=== PATIENT | male | born 1950 | race Caucasian/White ===

== ENCOUNTER 2021-04-23 11:07 | Observation (INO) ==
[2021-04-23 11:41] LABS: Basophils % 0.7 % (0.0-0.8); Eosinophils # 0.1 10*3/uL (0.0-0.87); Immature Granulocytes % 0.3 %; Immature Granulocytes Absolute 0.02 #; Lymphocytes # 1.2 10*3/uL (1.4-4.0); Mean Corpuscular HGB Conc 33.3 GM/DL (32-36); Mean Corpuscular Volume 98.3 FL (87-102); Mean Platelet Volume 9.7 FL (9.6-12.0); Monocytes % 7.7 % (1.7-12.7); Neutrophils % 68.3 % (38.7-73.9); Platelet Count 196 T/CUMM (130-400); Red Blood Count 4.58 MC/CUMM (3.8-5.5); Red Cell Distribution Width 13.4 % (9.3-17.3); White Blood Count 5.9 T/CUMM (4-12)
[2021-04-23 11:51] LABS: PT Patient Result 10.8 SECS (10.5-12.0); Partial Thromboplastin Time 26.6 SECS (23.9-33.8)
[2021-04-23 11:59] LABS: Albumin 3.8 G/DL (3.4-5.0); Bilirubin,Total 0.7 MG/DL (0.20-1.00); Calcium 9.2 MG/DL (8.5-10.1); Osmolality,Calculated 283.4 MOS/KG (273-304); Potassium 4.4 MMOL/L (3.5-5.1); Total Protein 7.2 G/DL (6.4-8.2)
[2021-04-23] MEDS ORDERED: NITROGLYCERIN SL 0.4 MG TABLET SL PRN (13:51)
[2021-04-23] MEDS ORDERED: ZALEPLON 5 MG CAPSULE PO PRN (14:15)
[2021-04-23] MEDS ORDERED: GLUCAGON 1 MG VIAL IM PRN (14:15)
[2021-04-23] MEDS ORDERED: MORPHINE 2 MG/1 ML SYRINGE IV PRN (14:15)
[2021-04-23] MEDS ORDERED: DEXTROSE 50% 25 GM/50 ML VIAL IV PRN (14:15)
[2021-04-23] MEDS ORDERED: MAGNESIUM SULF RIDER 2 GM/50 ML PREMIX IV PRN (14:15)
[2021-04-23] MEDS ORDERED: MAGNESIUM SULF RIDER 4 GM/100 ML PREMIX IV PRN (14:15)
[2021-04-23] MEDS ORDERED: ONDANSETRON 4 MG/2 ML VIAL IV PRN (14:15)
[2021-04-23] MEDS: INSULIN LISPRO 100 UNIT/ML SUBCUT SCH ×2 (18:43→20:56)
[2021-04-23] MEDS: carvediloL 3.125 MG TABLET PO SCH (18:54)
[2021-04-23] MEDS: ENOXAPARIN 40 MG/0.4 ML SYRINGE SUBCUT SCH (18:54)
[2021-04-23] MEDS: SODIUM CHLORIDE 0.45% 1,000 ML IV SCH (18:55)
[2021-04-23] MEDS: TICAGRELOR 90 MG TABLET PO SCH (20:56)
[2021-04-23] MEDS: SIMVASTATIN 20 MG TABLET PO SCH (20:56)
[2021-04-23] MEDS ORDERED: PIOGLITAZONE PO SCH (21:00)
[2021-04-23] MEDS ORDERED: METFORMIN PO SCH (21:00)
[2021-04-24 05:57] LABS: Risk Ratio 2.44
[2021-04-24] MEDS: SODIUM CHLORIDE 0.45% 1,000 ML IV SCH (06:08)
[2021-04-24] MEDS ORDERED: PNEUMOCOCCAL VACCINE (13 VALENT) 0.5 ML SYRINGE IM ONE (08:00)
[2021-04-24] MEDS ORDERED: metFORMIN 500 MG TABLET PO SCH (08:00)
[2021-04-24] MEDS: INSULIN LISPRO 100 UNIT/ML SUBCUT SCH ×4 (08:58→20:37)
[2021-04-24] MEDS: ENALAPRIL 20 MG TABLET PO SCH (09:01)
[2021-04-24] MEDS: carvediloL 3.125 MG TABLET PO SCH ×2 (09:02→16:41)
[2021-04-24] MEDS: ASPIRIN EC 81 MG TABLET PO SCH (09:02)
[2021-04-24] MEDS: PIOGLITAZONE 15 MG TABLET PO SCH ×2 (09:03→16:41)
[2021-04-24] MEDS: TICAGRELOR 90 MG TABLET PO SCH ×2 (09:04→20:36)
[2021-04-24] MEDS: ISOSORBIDE MONONITRATE 30 MG TABLET PO SCH (10:55)
[2021-04-24] MEDS: PANTOPRAZOLE 40 MG TABLET PO SCH (10:55)
[2021-04-24] MEDS ORDERED: HEPARIN/NACL 0.9% 2 UNITS/ML 2,000 UNIT/1,000 ML BAG IV ONE (11:49)
[2021-04-24] MEDS ORDERED: LIDOCAINE 1% 20 ML VIAL ONE (11:49)
[2021-04-24] MEDS ORDERED: VERAPAMIL 5 MG/2 ML VIAL ONE (11:50)
[2021-04-24] MEDS ORDERED: NITROGLYCERIN DRIP 50 MG/250 ML BOTTLE IV ONE (11:50)
[2021-04-24] MEDS ORDERED: diphenhydrAMINE CAP 25 MG CAPSULE PO ONE (13:00)
[2021-04-24] MEDS ORDERED: DIAZEPAM 5 MG TABLET PO ONE (13:00)
[2021-04-24] MEDS ORDERED: fentaNYL 100 MCG/2 ML VIAL ONE (13:25)
[2021-04-24] MEDS ORDERED: MIDAZOLAM 2 MG/2 ML VIAL ONE (13:25)
[2021-04-24] MEDS ORDERED: ENOXAPARIN 60 MG/0.6 ML SYRINGE ONE (13:52)
[2021-04-24] MEDS ORDERED: TIROFIBAN 5,000 MCG/100 ML PREMIX IV ONE (13:52)
[2021-04-24] MEDS ORDERED: ENOXAPARIN 30 MG/0.3 ML SYRINGE ONE (13:52)
[2021-04-24] MEDS: ENOXAPARIN 40 MG/0.4 ML SYRINGE SUBCUT SCH (13:59)
[2021-04-24] MEDS ORDERED: TIROFIBAN 5,000 MCG/100 ML PREMIX IV SCH (14:01)
[2021-04-24] MEDS ORDERED: TICAGRELOR 90 MG TABLET ONE (14:11)
[2021-04-24] MEDS: SIMVASTATIN 20 MG TABLET PO SCH (20:36)
[2021-04-25 04:36] LABS: Basophils % 0.6 % (0.0-0.8); Eosinophils # 0.1 10*3/uL (0.0-0.87); Eosinophils % 1.8 % (0.00-10.9); Hematocrit 42.3 VOL% (42.0-52.0); Hemoglobin 13.8 GM/DL (14.0-18.0); Immature Granulocytes % 0.3 %; Immature Granulocytes Absolute 0.02 #; Lymphocytes % 15.3 % (21.2-54.2); Mean Corpuscular HGB Conc 32.6 GM/DL (32-36); Mean Corpuscular Volume 98.6 FL (87-102); Mean Platelet Volume 9.8 FL (9.6-12.0); Monocytes % 6.3 % (1.7-12.7); Neutrophils % 75.7 % (38.7-73.9); Platelet Count 182 T/CUMM (130-400); Red Blood Count 4.29 MC/CUMM (3.8-5.5); Red Cell Distribution Width 13.2 % (9.3-17.3); White Blood Count 6.7 T/CUMM (4-12)
[2021-04-25 05:10] LABS: Calcium 8.7 MG/DL (8.5-10.1); Osmolality,Calculated 278.5 MOS/KG (273-304); Potassium 3.5 MMOL/L (3.5-5.1)
[2021-04-25] MEDS: INSULIN LISPRO 100 UNIT/ML SUBCUT SCH (08:01)
[2021-04-25] MEDS: carvediloL 3.125 MG TABLET PO SCH (10:04)
[2021-04-25] MEDS: PIOGLITAZONE 15 MG TABLET PO SCH (10:04)
[2021-04-25] MEDS: PANTOPRAZOLE 40 MG TABLET PO SCH (10:04)
[2021-04-25] MEDS: ISOSORBIDE MONONITRATE 30 MG TABLET PO SCH (10:05)
[2021-04-25] MEDS: ENALAPRIL 20 MG TABLET PO SCH (10:05)
[2021-04-25] MEDS: ASPIRIN EC 81 MG TABLET PO SCH (10:05)
[2021-04-25] MEDS: TICAGRELOR 90 MG TABLET PO SCH (10:05)
[2021-04-25 10:07] VITALS: BP 128/68
== END 2021-04-25 10:46 | disposition home or self-care (01) ==
LOC: N.ED 11:07 → N.EDINP 11:07 → N.TELEN 18:06
PROVIDERS: ADMIT Internal Medicine Cardiovascular Disease; ATTEND Internal Medicine Cardiovascular Disease
PROC: CLCCHCL (ICD-10-PCS; 2021-04-24 14:15)

== ENCOUNTER 2021-07-24 11:34 | Observation (INO) ==
[2021-07-24 12:09] LABS: Basophils % 0.5 % (0.0-0.8); Eosinophils # 0.1 10*3/uL (0.0-0.87); Eosinophils % 1.9 % (0.00-10.9); Hematocrit 41.9 VOL% (42.0-52.0); Hemoglobin 13.7 GM/DL (14.0-18.0); Immature Granulocytes % 0.5 %; Immature Granulocytes Absolute 0.03 #; Lymphocytes # 0.9 10*3/uL (1.4-4.0); Lymphocytes % 14.7 % (21.2-54.2); Mean Corpuscular HGB Conc 32.7 GM/DL (32-36); Mean Corpuscular Volume 98.6 FL (87-102); Mean Platelet Volume 9.3 FL (9.6-12.0); Monocytes % 6.3 % (1.7-12.7); Neutrophils % 76.1 % (38.7-73.9); Platelet Count 227 T/CUMM (130-400); Red Blood Count 4.25 MC/CUMM (3.8-5.5); Red Cell Distribution Width 13.2 % (9.3-17.3); White Blood Count 6.3 T/CUMM (4-12)
[2021-07-24] MEDS ORDERED: NITROGLYCERIN 2% OINT 1 INCH/GM PACK TOP STA (12:10)
[2021-07-24] MEDS ORDERED: ASPIRIN 325 MG TABLET PO STA (12:10)
[2021-07-24 12:30] LABS: Albumin 3.8 G/DL (3.4-5.0); Bilirubin,Total 0.9 MG/DL (0.20-1.00); Osmolality,Calculated 287.4 MOS/KG (273-304); Potassium 3.8 MMOL/L (3.5-5.1); Total Protein 6.9 G/DL (6.4-8.2)
[2021-07-24] MEDS ORDERED: MAGNESIUM SULF RIDER 4 GM/100 ML PREMIX IV PRN (13:27)
[2021-07-24] MEDS ORDERED: ALUMINUM/MAGNES/SIMETH MAX STR 30 ML UDCUP PO PRN (13:27)
[2021-07-24] MEDS ORDERED: ZALEPLON 5 MG CAPSULE PO PRN (13:27)
[2021-07-24] MEDS ORDERED: POTASSIUM CHLORIDE 20 MEQ TABLET PO PRN (13:27)
[2021-07-24] MEDS ORDERED: ONDANSETRON 4 MG/2 ML VIAL IV PRN (13:27)
[2021-07-24] MEDS ORDERED: MAGNESIUM SULF RIDER 2 GM/50 ML PREMIX IV PRN (13:27)
[2021-07-24] MEDS ORDERED: POTASSIUM CHLORIDE RIDER 10 MEQ/100 ML PREMIX IV PRN (13:30)
[2021-07-24] MEDS ORDERED: DIAZEPAM 5 MG TABLET PO ONE (13:30)
[2021-07-24] MEDS ORDERED: diphenhydrAMINE 2% CREAM 28 GM TUBE TOP PRN (13:32)
[2021-07-24] MEDS ORDERED: HEPARIN/NACL 0.9% 2 UNITS/ML 2,000 UNIT/1,000 ML BAG IV ONE (13:36)
[2021-07-24] MEDS ORDERED: LIDOCAINE 1% 20 ML VIAL ONE (13:36)
[2021-07-24] MEDS ORDERED: diphenhydrAMINE CAP 25 MG CAPSULE PO STA (13:49)
[2021-07-24] MEDS: SODIUM CHLORIDE 0.9% 1,000 ML IV SCH (14:00)
[2021-07-24] MEDS ORDERED: fentaNYL 100 MCG/2 ML VIAL ONE (14:11)
[2021-07-24] MEDS ORDERED: MIDAZOLAM 2 MG/2 ML VIAL ONE ×2 (14:11→14:34)
[2021-07-24] MEDS ORDERED: GLUCAGON 1 MG VIAL IM PRN (15:30)
[2021-07-24] MEDS ORDERED: DEXTROSE 50% 25 GM/50 ML VIAL IV PRN (15:30)
[2021-07-24] MEDS ORDERED: MORPHINE 2 MG/1 ML SYRINGE IV PRN (15:31)
[2021-07-24] MEDS ORDERED: CYANOCOBALAMIN 1000 MCG/1 ML VIAL IM SCH (16:00)
[2021-07-24] MEDS: INSULIN REGULAR 100 UNIT/ML SUBCUT SCH ×2 (17:09→20:20)
[2021-07-24] MEDS: GLIMEPIRIDE 4 MG TABLET PO SCH (17:47)
[2021-07-24] MEDS: carvediloL 3.125 MG TABLET PO SCH (17:47)
[2021-07-24] MEDS: TICAGRELOR 90 MG TABLET PO SCH (20:52)
[2021-07-24] MEDS ORDERED: ROSUVASTATIN 20 MG TABLET PO SCH (21:00)
[2021-07-24] MEDS: ACETAMINOPHEN 325 MG TABLET PO PRN (21:03)
[2021-07-25] MEDS: ACETAMINOPHEN 325 MG TABLET PO PRN (04:37)
[2021-07-25] MEDS: SODIUM CHLORIDE 0.9% 1,000 ML IV SCH ×2 (04:52→09:00)
[2021-07-25 05:06] LABS: Basophils % 0.6 % (0.0-0.8); Eosinophils # 0.1 10*3/uL (0.0-0.87); Eosinophils % 1.8 % (0.00-10.9); Hematocrit 38.9 VOL% (42.0-52.0); Hemoglobin 12.7 GM/DL (14.0-18.0); Immature Granulocytes % 0.3 %; Immature Granulocytes Absolute 0.02 #; Lymphocytes # 1.6 10*3/uL (1.4-4.0); Lymphocytes % 25.8 % (21.2-54.2); Mean Corpuscular HGB Conc 32.6 GM/DL (32-36); Mean Corpuscular Volume 98.5 FL (87-102); Mean Platelet Volume 9.6 FL (9.6-12.0); Monocytes % 7.1 % (1.7-12.7); Neutrophils % 64.4 % (38.7-73.9); Platelet Count 207 T/CUMM (130-400); Red Blood Count 3.95 MC/CUMM (3.8-5.5); Red Cell Distribution Width 13.2 % (9.3-17.3); White Blood Count 6.2 T/CUMM (4-12)
[2021-07-25 05:22] LABS: Albumin 3.5 G/DL (3.4-5.0); Bilirubin,Total 1.1 MG/DL (0.20-1.00); Calcium 8.9 MG/DL (8.5-10.1); Osmolality,Calculated 280.4 MOS/KG (273-304); Potassium 3.7 MMOL/L (3.5-5.1); Total Protein 6.6 G/DL (6.4-8.2)
[2021-07-25 05:26] LABS: Risk Ratio 1.71; VLDL Cholesterol 25.8 MG/DL
[2021-07-25 05:27] LABS: Calcium 8.8 MG/DL (8.5-10.1); Osmolality,Calculated 281.3 MOS/KG (273-304); Potassium 3.8 MMOL/L (3.5-5.1)
[2021-07-25] MEDS: INSULIN REGULAR 100 UNIT/ML SUBCUT SCH ×3 (08:26→17:26)
[2021-07-25] MEDS ORDERED: ENALAPRIL 20 MG TABLET PO SCH (09:00)
[2021-07-25] MEDS ORDERED: NON-FORMULARY MEDICATION (Omeprazole 20 mg Capsule,Delayed Release(Dr/Ec)) PO SCH (09:00)
[2021-07-25] MEDS ORDERED: CANAGLIFLOZIN 300 MG PO SCH (09:00)
[2021-07-25] MEDS ORDERED: ASPIRIN EC 81 MG TABLET PO SCH (09:00)
[2021-07-25] MEDS ORDERED: ISOSORBIDE MONONITRATE 30 MG TABLET PO SCH (09:00)
[2021-07-25] MEDS ORDERED: PANTOPRAZOLE 40 MG TABLET PO SCH (09:00)
[2021-07-25] MEDS: NITROGLYCERIN SL 0.4 MG TABLET SL PRN ×2 (09:15→09:20)
[2021-07-25] MEDS: TICAGRELOR 90 MG TABLET PO SCH (09:59)
[2021-07-25] MEDS: carvediloL 3.125 MG TABLET PO SCH ×2 (09:59→17:26)
[2021-07-25] MEDS: GLIMEPIRIDE 4 MG TABLET PO SCH ×2 (09:59→17:26)
[2021-07-25] MEDS ORDERED: diphenhydrAMINE 50 MG/1 ML VIAL IV ONE (11:06)
[2021-07-25] MEDS ORDERED: diphenhydrAMINE 50 MG/1 ML VIAL IV PRN (11:06)
[2021-07-25] MEDS ORDERED: ENOXAPARIN 100 MG/ML SYRINGE SUBCUT SCH (11:30)
[2021-07-25 17:14] VITALS: BP 99/3
[2021-07-26] MEDS ORDERED: ISOSORBIDE MONONITRATE 60 MG TABLET PO SCH (09:00)
== END 2021-07-25 18:50 | disposition hospice, home (50) ==
LOC: N.ED 11:34 → N.EDINP 11:34 → N.TELEN 15:49
PROVIDERS: ADMIT Internal Medicine Cardiovascular Disease; ATTEND Internal Medicine Cardiovascular Disease
PROC: CLCCHCL (ICD-10-PCS; 2021-07-24 14:15)